=== PATIENT | male | born 1995 | race Caucasian/White ===

== ENCOUNTER 2019-08-26 19:40 | Emergency (ER) | payer SELFPAY ==
[~2019-08-26] VITALS: Ht 177.8 cm; Wt 55.3 kg
[2019-08-26] MEDS ORDERED: KETOROLAC 30 MG/ML VIAL IM ONE (20:00)
[2019-08-26] MEDS ORDERED: LIDOCAINE MPF 1% 10 MG/ML VIAL INJ ONE (20:00)
--- NOTE | 2019-08-26 20:07 | NUR ---
rah davalos at bedside.
[2019-08-26 20:08] VITALS: BP 127/76
--- NOTE | 2019-08-26 20:14 | NUR ---
AT BEDSIDE FOR ESTEFANIA CANCHOLA TO ADMINISTER FOR BEDSIDE PROCEDURE. Addendum: 08/26/19 at 2021 by [facility] AT BEDSIDE FOR ESTEFANIA CANCHOLA TO ADMINISTER FOR BEDSIDE PROCEDURE.
--- NOTE | 2019-08-26 20:19 | NUR ---
23 Y/M PRESENTS TO ED FOR LACERATION TO R THUMB AT 12 NOON, PT WAS SENT TO URGENT CARE EARLIER. PT REPORTS NOTHING WAS DONE. PT WORKS AT [employer] AND CUT THUMB WITH A KNIFE. LATERAL ASPECT OF THUMB CHOPPED OFF. SLIGHT BLEEDING AT SIGHT. COMPRESS APPLIED TO THUMB. PT A&O X 4, CRYING IN BED 10/10 PAIN. PT REPORTS LAST TDAP WAS DONE WITHIN 10 YEARS. CAP REFILL <2 SECONDS. PMH- DENIES MEDS- DENIES
--- NOTE | 2019-08-26 20:20 | NUR ---
XR AT BEDSIDE.
--- NOTE | 2019-08-26 20:27 | NUR ---
ESTEFANIA CANCHOLA AT BEDSIDE.
[2019-08-26 20:50] VITALS: BP 127/76
--- NOTE | 2019-08-26 20:50 | NUR ---
Patient discharged with v/s stable. Written and verbal after care instructions given and explained. Patient alert, oriented and verbalized understanding of instructions. Ambulatory with steady gait. All questions addressed prior to discharge. ID band removed. Patient advised to follow up with PMD. Rx of NORCO, KEFLEX AND IBUPROFEN given. Patient educated on indication of medication including possible reaction and side effects. Opportunity to ask questions provided and answered.
--- NOTE | 2019-08-26 20:52 | NUR ---
WOUND WRAPPED BY LEISA MCCARTY
== END 2019-08-26 20:50 | disposition home or self-care (01) ==
LOC: MED 19:40
DX: S61.011A Laceration without foreign body of right thumb without damage to nail, initial encounter (principal); Z89.011 Acquired absence of right thumb; W45.8XXA Other foreign body or object entering through skin, initial encounter; Y93.89 Activity, other specified; Y92.89 Other specified places as the place of occurrence of the external cause; Y99.0 Civilian activity done for income or pay
CPT/HCPCS: 64450; 73140; 96372; 99284; J1885; J2001; Q0092; 99283